=== PATIENT | male | born 1960 | race Caucasian/White ===

== ENCOUNTER → 2020-09-29 | Outpatient (CLI) | payer OTHER ==
--- NOTE | 2020-09-29 12:12 | CT ---
EXAMINATION TYPE: CT chest w con DATE OF EXAM: 09/29/2020 COMPARISON: None HISTORY: 60-year-old male Z87.891, History of multiple episodes of bronchitis. TECHNIQUE: Contiguous axial scanning of the chest after the administration of 100 mL of Isovue 300. Coronal/sagittal reconstructions performed. CT DLP: 322.8mGycm. Automatic exposure control utilized for a dose reduction. FINDINGS: The heart is normal size without pericardial effusion. LAD coronary artery calcifications are present . Aortic ectatic at 3.7 cm. Ascending aorta mildly aneurysmal at 4.1 cm. Conventional branching anatomy with mild atherosclerotic calcification plaque at the aortic arch. No thoracic lymphadenopathy by CT size criteria. Patchy groundglass and interstitial changes greatest in the mid and lower lungs. No bronchiectasis or honeycombing. 4 mm peripheral right lower lobe pulmonary nodule, axial image 35. Visualized upper abdomen shows diffuse low-attenuation of the hepatic parenchyma compatible with fatt y infiltration. Bones: DISH throughout the mid and lower thoracic spine. IMPRESSION: 1. Patchy groundglass and interstitial changes greatest in the mid and lower lungs. Findings could re flect a post infectious/inflammatory sequela such as scarring after COVID pneumonia. Interstitial pne umonitis such as NSIP or DIP are differential considerations. If environmental exposure history, hype rsensitivity pneumonitis could be considered as well. Consider pulmonary medicine referral and six-mo nth follow-up CT to determine stability. 2. The 4 mm right lower lobe pulmonary nodule can also be reassessed at that time. 3. Mild aneurysm ascending aorta at 4.1 cm. LAD coronary artery calcifications.
== END | disposition home or self-care (01) ==
LOC: RADCTMAIN 11:16
PROVIDERS: ATTEND Family Medicine
DX: J84.89 Other specified interstitial pulmonary diseases (principal); R91.1 Solitary pulmonary nodule; I25.10 Atherosclerotic heart disease of native coronary artery without angina pectoris; I71.2 Thoracic aortic aneurysm, without rupture
CPT/HCPCS: 71260; Q9967

== ENCOUNTER → 2021-09-09 | Outpatient (CLI) | payer OTHER ==
--- NOTE | 2021-09-10 12:29 | CT ---
EXAMINATION TYPE: CT chest w con DATE OF EXAM: 09/09/2021 COMPARISON: 09/29/2020 HISTORY: Lung nodule follow up CT DLP: 426.50 mGycm, Automated exposure control for dose reduction was used. CONTRAST: Performed injected with 100 ml mL of Isovue 300. TECHNIQUE: Axial images were obtained at 5 mm thick sections. Reconstructed images are reviewed on [employer] computer in the coronal plane. FINDINGS: Portion of the thyroid visualized is normal. Some minimal pneumonitis in the periphery of the bilateral lung elliott. Findings are nonspecific. 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 There is a 0.5 cm nodule within the posterior lateral right midlung. Series 4 image 39. This was pres ent previously. No enlarged mediastinal or hilar adenopathy is evident. The ascending aorta diameter at the level o f the main pulmonary artery is 4.1 cm. The main pulmonary artery diameter at the bifurcation is 2.[address] sections are obtained through the upper abdomen. Moderate fatty infiltration of single magui er. IMPRESSIONS: 1. Mild scattered areas of pneumonitis. Consider atypical pneumonia. 2. A 0.5 cm right lateral nodule. Follow-up exam 6 months to confirm stability is recommended. 3. Moderate fatty infiltration through the liver. Ascending thoracic aortic aneurysm 4.1 cm, stable f rom comparison
== END | disposition home or self-care (01) ==
LOC: RADCTMAIN 09:42
PROVIDERS: ATTEND Internal Medicine
DX: J18.9 Pneumonia, unspecified organism (principal); K76.0 Fatty (change of) liver, not elsewhere classified; I71.2 Thoracic aortic aneurysm, without rupture
CPT/HCPCS: 71260; Q9967

== ENCOUNTER → 2022-04-12 | Outpatient (CLI) | payer OTHER ==
--- NOTE | 2022-04-12 09:39 | CT ---
EXAMINATION TYPE: CT chest w con DATE OF EXAM: 04/12/2022 COMPARISON: 09/09/2021 HISTORY: lung nodule CT DLP: 475.9 mGycm Automated exposure control for dose reduction was used. TECHNIQUE: CT scan of the chest is performed with IV Contrast, patient injected with 70 mL of Isovue 300. MIP I mages are created on CT scanner and reviewed. 3D reconstructed images are created on an independent w orkstation and reviewed. FINDINGS: LUNGS: There is a stable tiny nodule measuring 5 mm in the right lower lobe superior segment. Subsegmental consolidation involving superior segment right lower lobe scarring or atelectasis and in terlobular septal thickening involving the left upper lobe could represent a localized area interstit ial lung disease stable prior exam and therefore chronic. Suspect mild emphysematous changes with no pneumothorax or focal pneumonia. No pleural effusion. MEDIASTINUM: There are no greater than 1 cm hilar or mediastinal lymph nodes. No pericardial effusi on is seen. Coronary artery calcification is seen. Heart size is normal. Ascending aorta measures 4 cm in greates t dimension and is retrospectively stable. OTHER: Hypertrophic and degenerative changes of the spine. Low attenuation liver compatible with hep atic steatosis projects superior endplate deformity of upper thoracic vertebral segments IMPRESSION: 1. Mild COPD with areas of scattered scarring or atelectasis. 2. Stable 4 to 5 mm right lower lobe pulmonary nodule which has a benign appearance. 3. coronary artery calcifications. 4. hepatic steatosis
== END | disposition home or self-care (01) ==
LOC: RADCTMAIN 08:16
PROVIDERS: ATTEND Internal Medicine
DX: J44.9 Chronic obstructive pulmonary disease, unspecified (principal); I25.10 Atherosclerotic heart disease of native coronary artery without angina pectoris; K76.0 Fatty (change of) liver, not elsewhere classified; R91.1 Solitary pulmonary nodule
CPT/HCPCS: 71260; Q9967

== ENCOUNTER 2022-07-23 10:00 | Day surgery (SDC) | payer OTHER ==
[2022-07-20 15:36] VITALS: BMI 27.8
[~2022-07-23 10:00] MED LIST: LIDOCAINE 1% (10MG/ML) FOR IV START INTRADERMA PRN
[2022-07-23] MEDS: LACTATED RINGERS 1,000 ML IV SCH ×2 (10:19→10:30)
[2022-07-23 10:34] VITALS: RESP 16; TEMP 97.5
[2022-07-23] MEDS ORDERED: PROPOFOL 10 MG/ML 20 ML VIAL IV ONE (11:16)
[2022-07-23] MEDS ORDERED: LIDOCAINE 2% INJ 20 MG/ML (2 ML VIAL) ONE (11:16)
--- NOTE | 2022-07-23 11:31 | P.PCN ---
Date of Procedure: 07/23/22 Procedure(s) Performed: BRIEF HISTORY: Patient is a 62-year-old pleasant white male scheduled for an elective colonoscopy as a part of screening for colon cancer. PROCEDURE PERFORMED: Colonoscopy. PREOPERATIVE DIAGNOSIS: Screening for colon cancer. IV sedation per Anesthesia. PROCEDURE: After informed consent was obtained, the patient, was brought into the endoscopy unit. IV sedation was administered by Anesthesia under continuous monitoring. Digital rectal examination was normal. Initially the Olympus CF-160 flexible video colonoscope was then inserted in the rectum, gradually advanced into the cecum without any difficulty. Careful examination was performed as the scope was gradually being withdrawn. Ileocecal valve and the appendiceal orifice were visualized and appeared normal. Prep was excellent. Mucosa of the cecum, ascending colon, transverse colon, descending colon, sigmoid colon, and rectum appeared normal. Retroflexion was performed in the rectum and no lesions were seen. The patient tolerated the procedure well. IMPRESSION: Normal-appearing colon from rectum to cecum with no evidence of colorectal neoplasia Scattered sigmoid diverticulosis. RECOMMENDATIONS: Findings of this examination were discussed with the patient as well as his family. He was advised to have a screening coloscopy in 10 years.
[2022-07-23 11:52] VITALS: BP 123/61; PULSE 60
== END 2022-07-23 12:41 | disposition home or self-care (01) ==
LOC: ORWHC2ENDO 10:00
PROVIDERS: ATTEND Internal Medicine Gastroenterology
DX: Z12.11 Encounter for screening for malignant neoplasm of colon (principal); K57.30 Diverticulosis of large intestine without perforation or abscess without bleeding; I10 Essential (primary) hypertension; E78.5 Hyperlipidemia, unspecified; Z87.891 Personal history of nicotine dependence; Z79.899 Other long term (current) drug therapy
CPT/HCPCS: 45378; J2704; J2001

== ENCOUNTER → 2024-04-16 | Outpatient (CLI) | payer OTHER ==
--- NOTE | 2024-04-16 13:21 | CT ---
EXAMINATION TYPE: CT angio chest CT DLP: 508.80 mGycm, Automated exposure control for dose reduction was used. DATE OF EXAM: 04/16/2024 1:11 PM COMPARISON: CT chest 04/12/2022, 09/09/2021, 09/29/2020 CLINICAL INDICATION:Male, 63 years old with history of R06.02 SHORTNESS OF BREATH; SOB TECHNIQUE/CONTRAST: CTA scan of the thorax is performed with IV Contrast, patient injected with 100 mL of Isovue 370, pul monary embolism protocol. MIP images are created and reviewed. FINDINGS: Pulmonary Artery: There is no evidence for a filling defect within the pulmonary vasculature to sugge st acute pulmonary embolism. Reflux of contrast into the IVC and hepatic veins. The pulmonary artery is of normal size. Lungs/Pleura: No evidence of focal consolidation, pleural effusion or pneumothorax. Scattered linear scarring within the right lower lobe and left upper lobe. Stable peripheral lingular 2 mm pulmonary n odule (series 5, image 107). Stable right lower lobe superior segment 3 mm pulmonary nodule (series 5 , image 177). Stable right lower lobe superior segment 4 mm pulmonary nodule (series 5, 29). Airway: Large airways are patent. Heart: Heart is within normal limits for size.. No pericardial effusion. Mild to moderate coronary ar terial calcifications. Vasculature: Stable ascending thoracic aortic aneurysm measured 4.1 cm. Stable ectasia of the aortic root measuring up to 3.8 cm. The descending thoracic aorta measures up to 2.6 cm. Minimal atheroscler otic calcification of the aorta and its branches. Mediastinum: No evidence of adenopathy. Musculoskeletal: No acute osseous abnormalities. DISH of the thoracic spine. Soft Tissues: Mild bilateral gynecomastia. Lower neck: No significant findings. Upper Abdomen: Diffuse low-attenuation to the liver parenchyma. Cholelithiasis. IMPRESSION: 1. No evidence of pulmonary embolism. 2. Few scattered regions of linear scarring within the right lower lobe and left upper lobe. 3. Stable aneurysm dilatation ascending thoracic aorta measuring up to 4.1 cm. 4. A few stable pulmonary nodules measuring up to 5 mm dating back to 2020 consider benign. 5.Hepatic steatosis. 6. Cholelithiasis. [facility], , 04/16/2024 1:19 PM
== END | disposition home or self-care (01) ==
LOC: RADCTMAIN 12:48
PROVIDERS: ATTEND Internal Medicine
DX: J98.4 Other disorders of lung (principal); R91.8 Other nonspecific abnormal finding of lung field; K80.20 Calculus of gallbladder without cholecystitis without obstruction; I71.21 Aneurysm of the ascending aorta, without rupture; R06.02 Shortness of breath; K76.0 Fatty (change of) liver, not elsewhere classified
CPT/HCPCS: 71275; Q9967